=== PATIENT | male | born 1930 | race African-American/Black ===

== ENCOUNTER 2017-07-09 08:47 | Inpatient (IN) | payer BC, MEDICARE, OTHER ==
[~2017-07-09] VITALS: Ht 172.7 cm; Wt 95.3 kg
[~2017-07-09 08:47] MED LIST: ASPI-986; ATEN-42; ATOR20TA; CLOP75TA16; FELO10TA; GLIP5TAB3; PIOG15TA6; TAMS0.4C31; VALS320T2
[2017-07-09] MEDS ORDERED: ONDANSETRON HCL 4MG/2ML VIAL IV STA (09:15)
[2017-07-09] MEDS ORDERED: SODIUM CHLORIDE 0.9% 500 ML IV ONE (09:15)
[2017-07-09] MEDS ORDERED: MORPHINE SULFATE 4 MG/ML CPJ (NOT FOR IM USE) IV STA (09:15)
[2017-07-09 10:06] LABS: BASOPHILS % 0.9 % (0.0-2.0); EOSINOPHILS % 3.9 % (0.0-5.0); HEMATOCRIT. 30.8 % (42.0-52.0); HEMOGLOBIN. 10.5 g/dL (14.0-18.0); LYMPHOCYTES % 24.3 % (20.0-50.0); MEAN CORPUSCULAR HEMOGLOBIN 30.2 pg (28.0-32.0); MEAN CORPUSCULAR VOLUME 88.7 fL (80.0-94.0); MEAN PLATELET VOLUME 8.1 fl (7.4-10.4); MONOCYTES % 9.7 % (2.0-8.0); NEUTROPHILS % 61.2 % (40.0-76.0); PLATELET 154 x1000/uL (130-400); RED BLOOD CELL COUNT 3.48 mill/uL (4.7-6.1); RED CELL DISTRIBUTION WIDTH 14.1 % (11.6-14.6)
[2017-07-09 10:14] LABS: INR 1.1; PROTHROMBIN TIME 11.5 sec (9.4-11.6)
[2017-07-09 10:23] LABS: CARBON DIOXIDE 26 mEq/L (21-32); CHLORIDE 110 mEq/L (98-107); CREATINE KINASE 104 IU/L (39-308); CREATINE KINASE MB FRACTION 0.7 ng/mL (0.5-3.6); TROPONIN I < 0.02 ng/mL (0.00-0.04)
[2017-07-09 11:39] LABS: CLARITY URINE CLEAR (CLEAR); COLOR URINE DARK YELLOW (YELLOW); GLUCOSE URINE NEGATIVE (NEGATIVE); KETONES URINE TRACE (NEGATIVE); LEUKOCYTE ESTERASE URINE NEGATIVE (NEGATIVE); NITRITE URINE NEGATIVE (NEGATIVE); OCCULT BLOOD URINE NEGATIVE (NEGATIVE); PROTEIN URINE TRACE (NEGATIVE); SPECIFIC GRAVITY URINE 1.028 (1.005-1.030)
[2017-07-09 14:00] VITALS: BP 154/54
[2017-07-09 16:00] VITALS: BP 164/65
[2017-07-09] MEDS ORDERED: MORPHINE SULFATE 2 MG/ML CPJ (NOT FOR IM USE) IV PRN (16:00)
[2017-07-09] MEDS ORDERED: DEXTROSE 50% WATER 50ML SYRINGE IV PRN (16:00)
[2017-07-09] MEDS: CLOPIDOGREL 75MG TABLET PO SCH (16:39)
[2017-07-09] MEDS: ASPIRIN 325MG EC TABLET PO SCH (16:39)
[2017-07-09] MEDS: PANTOPRAZOLE 40MG DR TABLET PO SCH ×2 (16:40→21:58)
[2017-07-09] MEDS: ATROPINE SULFATE 1MG/ML VIAL IV NR ×2 (16:40→18:46)
[2017-07-09] MEDS ORDERED: ENOXAPARIN 40MG/0.4ML SYR SUBCUT SCH (17:00)
[2017-07-09] MEDS: HYDRALAZINE HCL 50MG TABLET PO SCH ×2 (17:49→22:38)
[2017-07-09] MEDS: SODIUM CHLORIDE 0.45% 1,000 ML IV SCH (17:50)
[2017-07-09] MEDS: INSULIN LISPRO 100 UNITS/ML SUBCUT SCH ×2 (17:50→21:00)
[2017-07-09] MEDS: BLOOD SUGAR DIAGNOSTIC STRIP TEST SCH ×2 (17:50→21:58)
[2017-07-09 20:00] VITALS: BP 148/60
[2017-07-09] MEDS: ATORVASTATIN CALCIUM 20MG TABLET PO SCH (21:58)
[2017-07-09] MEDS ORDERED: HYDRALAZINE HCL 50MG TABLET PO SCH (22:00)
[2017-07-10] VITALS (7 sets, daily range): BP systolic 115–161; BP diastolic 43–67
[2017-07-10] MEDS: HYDRALAZINE HCL 50MG TABLET PO SCH ×3 (06:05→21:56)
[2017-07-10] MEDS: PANTOPRAZOLE 40MG DR TABLET PO SCH ×2 (06:30→21:56)
[2017-07-10] MEDS: BLOOD SUGAR DIAGNOSTIC STRIP TEST SCH ×4 (06:31→21:56)
[2017-07-10 06:40] LABS: BASOPHILS % 0.9 % (0.0-2.0); HEMOGLOBIN. 10.1 g/dL (14.0-18.0); LYMPHOCYTES % 36.3 % (20.0-50.0); MEAN CORPUSCULAR HEMOGLOBIN 30.3 pg (28.0-32.0); MEAN PLATELET VOLUME 8.4 fl (7.4-10.4); MONOCYTES % 12.4 % (2.0-8.0); NEUTROPHILS % 46.4 % (40.0-76.0); PLATELET 147 x1000/uL (130-400); RED BLOOD CELL COUNT 3.33 mill/uL (4.7-6.1); RED CELL DISTRIBUTION WIDTH 13.7 % (11.6-14.6)
[2017-07-10] MEDS: INSULIN LISPRO 100 UNITS/ML SUBCUT SCH ×4 (07:33→22:01)
[2017-07-10] MEDS: ASPIRIN 325MG EC TABLET PO SCH (08:17)
[2017-07-10] MEDS: CLOPIDOGREL 75MG TABLET PO SCH (08:17)
[2017-07-10 08:45] LABS: CHLORIDE 106 mEq/L (98-107)
[2017-07-10 08:52] LABS: CARBON DIOXIDE 25 mEq/L (21-32); HDL CHOLESTEROL 35 mg/dL (40-59); LDL CHOLESTEROL 126 mg/dL (5-100)
[2017-07-10] MEDS ORDERED: ENOXAPARIN 30MG/0.3ML SYR SUBCUT SCH (09:00)
[2017-07-10] MEDS: HYDROCODONE/ACETAMINOPHEN 5/325MG TABLET PO PRN ×2 (09:15→16:43)
[2017-07-10] MEDS: AMLODIPINE 2.5MG TABLET PO SCH ×2 (14:00→21:58)
[2017-07-10] MEDS ORDERED: HYDRALAZINE 20MG/ML VIAL IV PRN (14:00)
[2017-07-10] MEDS: SODIUM CHLORIDE 0.45% 1,000 ML IV SCH (16:06)
[2017-07-10 17:26] LABS: *AMPHETAMINES SCREEN URINE NEGATIVE (NEGATIVE); *BARBITURATES SCREEN URINE NEGATIVE (NEGATIVE); *BENZODIAZEPINES SCREEN URINE NEGATIVE (NEGATIVE); *COCAINE SCREEN URINE NEGATIVE (NEGATIVE); CANNABINOID URINE SCREEN NEGATIVE (NEGATIVE); METHADONE URINE SCREEN NEGATIVE (NEGATIVE); OPIATES URINE SCREEN PRESUMTIVE POSITIVE (NEGATIVE); PHENCYCLIDINE URINE SCREEN NEGATIVE (NEGATIVE)
[2017-07-10] MEDS: ENOXAPARIN 30MG/0.3ML SYR SUBCUT SCH (21:55)
[2017-07-10] MEDS: ATORVASTATIN CALCIUM 20MG TABLET PO SCH (21:56)
[2017-07-11] VITALS: BP 139/52
[2017-07-11] MEDS: HYDROCODONE/ACETAMINOPHEN 5/325MG TABLET PO PRN ×2 (03:47→09:48)
[2017-07-11 04:00] VITALS: BP 145/64
[2017-07-11] MEDS: HYDRALAZINE HCL 50MG TABLET PO SCH ×3 (06:22→22:00)
[2017-07-11] MEDS: PANTOPRAZOLE 40MG DR TABLET PO SCH ×2 (06:23→22:29)
[2017-07-11] MEDS: BLOOD SUGAR DIAGNOSTIC STRIP TEST SCH ×4 (06:25→21:00)
[2017-07-11 06:46] LABS: BASOPHILS % 0.6 % (0.0-2.0); EOSINOPHILS % 3.6 % (0.0-5.0); HEMATOCRIT. 31.1 % (42.0-52.0); HEMOGLOBIN. 10.6 g/dL (14.0-18.0); LYMPHOCYTES % 25.7 % (20.0-50.0); MEAN CORPUSCULAR HEMOGLOBIN 30.2 pg (28.0-32.0); MEAN CORPUSCULAR VOLUME 88.3 fL (80.0-94.0); MEAN PLATELET VOLUME 8.4 fl (7.4-10.4); MONOCYTES % 8.8 % (2.0-8.0); NEUTROPHILS % 61.3 % (40.0-76.0); PLATELET 144 x1000/uL (130-400); RED BLOOD CELL COUNT 3.52 mill/uL (4.7-6.1)
[2017-07-11 07:05] LABS: CHLORIDE 105 mEq/L (98-107)
[2017-07-11 07:31] LABS: CARBON DIOXIDE 24 mEq/L (21-32); CREATINE KINASE 67 IU/L (39-308); CREATINE KINASE MB FRACTION 0.7 ng/mL (0.5-3.6); HDL CHOLESTEROL 36 mg/dL (40-59); LDL CHOLESTEROL 125 mg/dL (5-100); TROPONIN I < 0.02 ng/mL (0.00-0.04)
[2017-07-11] MEDS: INSULIN LISPRO 100 UNITS/ML SUBCUT SCH ×4 (07:50→22:34)
[2017-07-11 08:00] VITALS: BP 143/57
[2017-07-11] MEDS: ASPIRIN 325MG EC TABLET PO SCH (08:48)
[2017-07-11] MEDS: AMLODIPINE 2.5MG TABLET PO SCH ×2 (08:49→21:00)
[2017-07-11] MEDS: CLOPIDOGREL 75MG TABLET PO SCH (08:49)
[2017-07-11] MEDS: ENOXAPARIN 30MG/0.3ML SYR SUBCUT SCH ×2 (08:50→22:27)
[2017-07-11 12:00] VITALS: BP 148/59
[2017-07-11 16:00] VITALS: BP 133/63
[2017-07-11 20:00] VITALS: BP 131/59
[2017-07-11] MEDS: ATORVASTATIN CALCIUM 20MG TABLET PO SCH (22:29)
[2017-07-12] VITALS: BP 134/52
[2017-07-12 02:37] VITALS: BP 132/58
[2017-07-12] MEDS: HYDROCODONE/ACETAMINOPHEN 5/325MG TABLET PO PRN ×2 (02:38→09:04)
[2017-07-12 04:00] VITALS: BP 127/57
[2017-07-12 06:18] LABS: HEMATOCRIT. 29.1 % (42.0-52.0); HEMOGLOBIN. 9.9 g/dL (14.0-18.0); MEAN CORPUSCULAR HEMOGLOBIN 30.5 pg (28.0-32.0); MEAN CORPUSCULAR VOLUME 89.7 fL (80.0-94.0); MEAN PLATELET VOLUME 8.4 fl (7.4-10.4); PLATELET 131 x1000/uL (130-400); RED BLOOD CELL COUNT 3.25 mill/uL (4.7-6.1); RED CELL DISTRIBUTION WIDTH 13.8 % (11.6-14.6)
[2017-07-12 06:46] LABS: CARBON DIOXIDE 27 mEq/L (21-32); CHLORIDE 106 mEq/L (98-107)
[2017-07-12] MEDS: BLOOD SUGAR DIAGNOSTIC STRIP TEST SCH ×2 (07:05→12:05)
[2017-07-12] MEDS: HYDRALAZINE HCL 50MG TABLET PO SCH ×2 (07:05→14:38)
[2017-07-12] MEDS: PANTOPRAZOLE 40MG DR TABLET PO SCH (07:09)
[2017-07-12 08:00] VITALS: BP 164/64
[2017-07-12] MEDS: ASPIRIN 325MG EC TABLET PO SCH (08:50)
[2017-07-12] MEDS: INSULIN LISPRO 100 UNITS/ML SUBCUT SCH ×2 (08:50→12:05)
[2017-07-12] MEDS: CLOPIDOGREL 75MG TABLET PO SCH (09:02)
[2017-07-12] MEDS: AMLODIPINE 2.5MG TABLET PO SCH (09:03)
[2017-07-12] MEDS: ENOXAPARIN 30MG/0.3ML SYR SUBCUT SCH (09:07)
[2017-07-12 12:00] VITALS: BP 144/55
[2017-07-12] MEDS ORDERED: SODIUM CHLORIDE 0.9% 10ML VIAL ONE (13:11)
[2017-07-12] MEDS ORDERED: IOHEXOL-350 100 ML BOTTLE ONE (13:11)
[2017-07-12 13:15] LABS: PLATELET ESTIMATE NORMAL
[2017-07-12] MEDS ORDERED: LACTULOSE 20G/30ML UDC PO SCH (14:00)
[2017-07-12 15:33] VITALS: BP 144/53
== END 2017-07-12 16:30 | disposition home or self-care (01) | DRG 206 ==
LOC: ER 10:28 → OBSVTOIN 12:26 → INTOOBSV 12:26 → 6WST 12:26 → EDBEDREQ 12:30 → ENRESERV 12:54
PROVIDERS: ADMIT Internal Medicine; ATTEND Internal Medicine
DX: M94.0 Chondrocostal junction syndrome [Tietze] (principal); E11.22 Type 2 diabetes mellitus with diabetic chronic kidney disease; I13.10 Hypertensive heart and chronic kidney disease without heart failure, with stage 1 through stage 4 chronic kidney disease, or unspecified chronic kidney disease; I25.10 Atherosclerotic heart disease of native coronary artery without angina pectoris; E11.51 Type 2 diabetes mellitus with diabetic peripheral angiopathy without gangrene; D63.8 Anemia in other chronic diseases classified elsewhere; N18.9 Chronic kidney disease, unspecified; E78.00 Pure hypercholesterolemia, unspecified; N40.0 Benign prostatic hyperplasia without lower urinary tract symptoms; R00.1 Bradycardia, unspecified; M19.90 Unspecified osteoarthritis, unspecified site; T44.7X5A Adverse effect of beta-adrenoreceptor antagonists, initial encounter; R10.9 Unspecified abdominal pain; Z86.73 Personal history of transient ischemic attack (TIA), and cerebral infarction without residual deficits; Z87.891 Personal history of nicotine dependence; Z95.1 Presence of aortocoronary bypass graft; Z79.82 Long term (current) use of aspirin; Z79.899 Other long term (current) drug therapy; Y92.89 Other specified places as the place of occurrence of the external cause; I71.4 Abdominal aortic aneurysm, without rupture
CPT/HCPCS: 36415; 71010; 71275; 74176; 76775; 78582; 80048; 80053; 80061; 80305; 81001; 82550; 82553; 82962; 83690; 83735; 83880; 84443; 84484; 85025; 85379; 85610; 85730; 87086; 93005; 93306; 96361; 96374; 96375; 99285; A4216; A9558; J0461; J1650; J1815; J2270; J2405; J7040; Q9967

== ENCOUNTER 2017-08-06 11:13 | Observation (INO) | payer MEDICARE ==
[~2017-08-06] VITALS: Ht 172.7 cm; Wt 87.5 kg
[~2017-08-06 11:13] MED LIST changes: -ATEN-42
[2017-08-06] MEDS ORDERED: MORPHINE SULFATE 4 MG/ML CPJ (NOT FOR IM USE) IV STA (13:32)
[2017-08-06] MEDS ORDERED: KETOROLAC 30MG/ML VIAL IV STA (13:32)
[2017-08-06] MEDS ORDERED: ONDANSETRON HCL 4MG/2ML VIAL IV STA (13:32)
[2017-08-06 14:29] LABS: BASOPHILS % 0.6 % (0.0-2.0); EOSINOPHILS % 3.2 % (0.0-5.0); HEMATOCRIT. 33.9 % (42.0-52.0); HEMOGLOBIN. 11.5 g/dL (14.0-18.0); LYMPHOCYTES % 33.9 % (20.0-50.0); MEAN CORPUSCULAR HEMOGLOBIN 30.2 pg (28.0-32.0); MEAN CORPUSCULAR VOLUME 88.7 fL (80.0-94.0); MEAN PLATELET VOLUME 8.2 fl (7.4-10.4); MONOCYTES % 12.3 % (2.0-8.0); PLATELET 121 x1000/uL (130-400); RED BLOOD CELL COUNT 3.82 mill/uL (4.7-6.1); RED CELL DISTRIBUTION WIDTH 14.3 % (11.6-14.6)
[2017-08-06 14:37] LABS: INR 1.1; PROTHROMBIN TIME 11.9 sec (9.4-11.6)
[2017-08-06 14:50] LABS: CARBON DIOXIDE 29 mEq/L (21-32); CHLORIDE 105 mEq/L (98-107)
[2017-08-06] MEDS ORDERED: CLONIDINE 0.2MG TABLET PO ONE (16:00)
[2017-08-06] MEDS ORDERED: ASPIRIN 325MG EC TABLET PO ONE (16:00)
[2017-08-06] MEDS ORDERED: HYDRALAZINE 20MG/ML VIAL IV PRN (16:30)
[2017-08-06] MEDS ORDERED: CLONIDINE 0.1MG TABLET PO PRN (16:30)
[2017-08-06 17:07] LABS: CLARITY URINE CLEAR (CLEAR); COLOR URINE YELLOW (YELLOW); GLUCOSE URINE NEGATIVE (NEGATIVE); KETONES URINE NEGATIVE (NEGATIVE); LEUKOCYTE ESTERASE URINE NEGATIVE (NEGATIVE); NITRITE URINE NEGATIVE (NEGATIVE); OCCULT BLOOD URINE NEGATIVE (NEGATIVE); PH URINE 5.5 (4.5-8.0); PROTEIN URINE TRACE (NEGATIVE); SPECIFIC GRAVITY URINE 1.019 (1.005-1.030)
[2017-08-06] MEDS ORDERED: REGADENOSON 0.4 MG/5 ML IV NR (18:01)
[2017-08-06 20:00] VITALS: BP_SYST 113; BP_SYST 192; BP_DIAS 56; BP_DIAS 80
[2017-08-06] MEDS ORDERED: DEXTROSE 50% WATER 50ML SYRINGE IV PRN (20:30)
[2017-08-06] MEDS: LOSARTAN POTASSIUM 50 MG TABLET PO SCH (20:50)
[2017-08-06] MEDS ORDERED: ENOXAPARIN 40MG/0.4ML SYR SUBCUT SCH (21:00)
[2017-08-06] MEDS: AMLODIPINE 5MG TABLET PO SCH (21:00)
[2017-08-06] MEDS ORDERED: ATORVASTATIN CALCIUM 20MG TABLET PO SCH (21:00)
[2017-08-06] MEDS: INSULIN LISPRO 100 UNITS/ML SUBCUT SCH (21:00)
[2017-08-06] MEDS: BLOOD SUGAR DIAGNOSTIC STRIP TEST SCH (21:03)
[2017-08-07] VITALS: BP 159/56
[2017-08-07 04:00] VITALS: BP 179/70
[2017-08-07 06:32] LABS: BASOPHILS % 0.8 % (0.0-2.0); EOSINOPHILS % 4.2 % (0.0-5.0); HEMATOCRIT. 31.3 % (42.0-52.0); HEMOGLOBIN. 10.8 g/dL (14.0-18.0); LYMPHOCYTES % 44.9 % (20.0-50.0); MEAN CORPUSCULAR HEMOGLOBIN 30.4 pg (28.0-32.0); MEAN CORPUSCULAR VOLUME 88.5 fL (80.0-94.0); MEAN PLATELET VOLUME 8.4 fl (7.4-10.4); MONOCYTES % 12.1 % (2.0-8.0); PLATELET 110 x1000/uL (130-400); RED BLOOD CELL COUNT 3.54 mill/uL (4.7-6.1); RED CELL DISTRIBUTION WIDTH 14.1 % (11.6-14.6)
[2017-08-07 07:39] LABS: CARBON DIOXIDE 28 mEq/L (21-32); CHLORIDE 107 mEq/L (98-107); CREATINE KINASE 110 IU/L (39-308); CREATINE KINASE MB FRACTION 1.4 ng/mL (0.5-3.6); HDL CHOLESTEROL 44 mg/dL (40-59); LDL CHOLESTEROL 78 mg/dL (5-100); T4 FREE 1.16 ng/dL (0.76-1.46)
[2017-08-07] MEDS: INSULIN LISPRO 100 UNITS/ML SUBCUT SCH ×3 (07:50→17:47)
[2017-08-07 08:00] VITALS: BP 148/79
[2017-08-07] MEDS: BLOOD SUGAR DIAGNOSTIC STRIP TEST SCH ×3 (08:05→17:20)
[2017-08-07] MEDS ORDERED: CLOPIDOGREL 75MG TABLET PO SCH (09:00)
[2017-08-07] MEDS ORDERED: ASPIRIN 325MG EC TABLET PO SCH (09:00)
[2017-08-07] MEDS: LOSARTAN POTASSIUM 50 MG TABLET PO SCH ×2 (10:07→17:00)
[2017-08-07] MEDS: AMLODIPINE 5MG TABLET PO SCH (10:07)
[2017-08-07] MEDS ORDERED: REGADENOSON 0.4 MG/5 ML IV ONE (11:08)
[2017-08-07 12:00] VITALS: BP 185/86
[2017-08-07 15:41] VITALS: BP 138/71
== END 2017-08-07 17:36 | disposition home or self-care (01) ==
LOC: ER 11:13 → EDBEDREQ 15:49 → ENRESERV 16:04 → CANBEDREQ 16:38 → 6WST 19:32 → INTOOBSV 19:32
PROVIDERS: ADMIT Internal Medicine; ATTEND Internal Medicine
DX: I24.9 Acute ischemic heart disease, unspecified (principal); I13.11 Hypertensive heart and chronic kidney disease without heart failure, with stage 5 chronic kidney disease, or end stage renal disease; N18.6 End stage renal disease; E11.51 Type 2 diabetes mellitus with diabetic peripheral angiopathy without gangrene; I25.10 Atherosclerotic heart disease of native coronary artery without angina pectoris; E11.22 Type 2 diabetes mellitus with diabetic chronic kidney disease; N40.0 Benign prostatic hyperplasia without lower urinary tract symptoms; E78.00 Pure hypercholesterolemia, unspecified; K80.20 Calculus of gallbladder without cholecystitis without obstruction; Z86.73 Personal history of transient ischemic attack (TIA), and cerebral infarction without residual deficits; Z86.79 Personal history of other diseases of the circulatory system; Z87.891 Personal history of nicotine dependence; Z95.1 Presence of aortocoronary bypass graft
CPT/HCPCS: 36415; 71010; 74176; 78452; 80053; 80061; 81001; 82550; 82553; 82962; 83605; 83690; 83735; 83880; 84439; 84443; 84484; 85025; 85379; 85610; 93005; 93017; 96374; 96375; 96376; 99285; A9500; G0378; J0360; J1885; J2270; J2405; J2785; J1650